=== PATIENT | male | born 1985 | race Caucasian/White ===

== ENCOUNTER 2019-01-21 16:10 | Emergency (ER) | payer MEDICAID ==
--- NOTE | 2019-01-21 16:21 | EDPHY ---
General Time Seen by Provider: 01/21/19 16:21 Narrative: CLINICAL IMPRESSION: Bilateral pedal skin breakdown, right foot cellulitis ASSESSMENT/PLAN: Patient is a 33-year-old male who presents for for a med clear complaining of bilateral foot pain. Patient is afebrile and not toxic appearing, no acute distress. Physical exam reveals wet feet with multiple blisters and areas of desquamation, mild right foot cellulitis. There was no evidence of systemic infection, gangrene, abscess, necrotizing skin infection or deep space infection. Patient was evaluated by General surgery Dr. Thomas, recommended nystatin powder and oral antibiotic for conservative therapy. I discussed the importance of keeping his feet dry, he was provided several bottles of nystatin power as he is going to residential. He was provided a prescription for Keflex and given his 1st dose in the emergency department. Dr. Thomas would like to see him in 1 week for follow-up, return precautions discussed. Patient is up-to- date on his tetanus status. DIFFERENTIAL DX: Differential diagnosis including but not limited to and in no particular order gangrene, cellulitis, abscess, necrotizing skin infection ED COURSE: 1631: Findings concerning for early gangrene. Case discussed with Dr. Thomas with General surgery, he will evaluate this patient in the emergency department. 1645: Dr. Thomas evaluated this patient, no concern for gangrene. Recommended nystatin antifungal and Keflex for conservative therapy. Will follow up in 1 week. 1713: Case discussed with Dr. Roberson, no findings to suggest osteomyelitis. No gas present. CHIEF COMPLAINT: Bilateral feet pain, skin loss and blisters HPI: Patient is a 33-year-old male who is homeless, no significant medical problems who presents to the emergency department with bilateral feet pain, skin breakdown and blisters. Patient reports 6 days ago he got his feet wet, he has been trying to keep his feet dry however has been unsuccessful. Patient reports since that time he has started to develop blisters on multiple toes, skin breakdown between his toes, skin breakdown on the soles of his feet as well as significant pain. He denies any numbness or tingling of his extremities. He has not tried anything for pain. Patient denies any fevers, chills or change in appetite. No history of issues with his feet in the past. He is up-to-date on his tetanus status. Patient currently under arrest for a reported felony, here for med clearance. PMH: Denies Family History: Not contributory Social History: Currently homeless REVIEW OF SYSTEMS: All other systems negative Constitutional: No fever, no chills, appetite change. Eyes: No discharge, vision change ENT: No sore throat, congestion, ear pain. Cardiovascular: No chest pain, no palpitations. Respiratory: No cough, no shortness of breath. Gastrointestinal: No abdominal pain, no vomiting, diarrhea. Genitourinary: No hematuria, dysuria, flank pain. Musculoskeletal: Bilateral foot pain. No back pain, joint swelling, joint pain , myalgias. Skin: Bilateral skin breakdown on his feet, blisters. Neurological: No headache, dizziness, weakness. PHYSICAL EXAM: General Appearance: Unkempt and disheveled. Not toxic-appearing. HENT: Normocephalic, atraumatic. Bilateral external ears are normal. Nares are clear, mucosa is pink. Oropharynx is clear, uvula is midline. There is no tonsillar enlargement or exudate. Eyes: PERRLA, EOMI. Conjunctiva pink, no pallor or injection. Neck: Supple, nontender, no lymphadenopathy, no midline pain, FROM, no meningismus. Respiratory: There are no retractions, lungs are clear to auscultation. Cardiac: Regular rate and rhythm, no murmurs or gallops. Gastrointestinal: Abdomen is soft, nontender, bowel sounds normal, no masses/ hernia, no rigidity, guarding or focal peritoneal findings. Neurological: Alert and oriented x 3, CN 2-12 grossly intact, normal sensation and strength Skin: Warm. Musculoskeletal: Bilateral feet are malodorous, there is desquamation bilaterally inter digitally. There are blisters noted on the right foot digits 1, 2 and 4. There are blisters noted on the left foot on toes 1, 2 and 3. There is desquamation bilateral forefoot, more so on the right foot with surrounding erythema. Ankles are nontender with full range of motion. 2+ dorsalis pedis and posterior tibialis. Bilateral calves are nontender. Lower extremities are otherwise unremarkable. Psychiatric: Mood and affect are normal, there is no agitation. MEDICAL DECISION MAKING: Patient was seen independently. Secondary supervising physician at time of evaluation was Dr. Farrell, he did not evaluate this patient. Diagnosis: Bilateral pedal skin breakdown and cellulitis. Summary: See Assessment and Plan for summary of ED visit Clinical lab tests: ordered / reviewed. Independent visualization of images, tracing, or specimens: Yes / No. Decision to obtain medical records or history from someone other than the patient: No Review / Summarize previous medical records: Yes Discussed patient with another provider: Yes, Dr. Farrell and Dr. Thomas Patient Progress: Stable, discharge to residential. - Objective Vital Signs: Initial Vital Signs Temperature (C) 36.9 C 01/21/19 16:10 Heart Rate 94 01/21/19 16:10 Respiratory Rate 16 01/21/19 16:10 Blood Pressure 151/105 H 01/21/19 16:10 O2 Sat (%) 95 01/21/19 16:10 O2 Delivery Mode Room Air Allergies/Adverse Reactions: No Known Allergies Allergy (Unverified 01/21/19 16:24) Home Medications: Medication Instructions Recorded Cephalexin [Keflex (*)] 500 mg PO Q6H #28 cap 01/21/19 Medications Given: Nystatin (Mycostatin Powder) 1 sanjay TP TID THIAGO Stop: 02/20/19 21:59 Last Admin: 01/21/19 17:02 Dose: 1 sanjay Discontinued Medications Cephalexin HCl (Keflex) 500 mg PO EDNOW ONE PRN Reason: Protocol Stop: 01/21/19 16:39 Last Admin: 01/21/19 17:02 Dose: 500 mg Departure - Departure Disposition: Law Enforcement/Court/Prison Clinical Impression: Skin breakdown Condition: Good Instructions: Additional Information Additional Instructions: Patient is medically clear for residential. DISCHARGE INSTRUCTIONS FROM YOUR PROVIDER Thank you for visiting our emergency department today. It is imperative that you keep your feet dry. Please apply the nystatin powder three times per day feet. Continue the oral antibiotic as prescribed 4 times per day. Follow-up with General surgery in 7 days. For pain control: You may take Tylenol, I recommend 500-1000 mg every 6-8 hours as needed. Take with food and a full glass of water. Stop taking if this is upsetting you stomach. Do not exceed 4000 mg in a 24 hr period. You may also take ibuprofen, recommend 400 mg every 6 hr. Take with food and a full glass of water. Stop taking if this upsets your stomach. Do not exceed 2400 mg in a 24 hr period. Return to the emergency department for fever, significantly increased pain, swelling, bleeding, redness, signs of infection or for any other concerning symptom. People present with illnesses and injuries in different ways, and it is always possible that we have missed something. Again, thank you for choosing our emergency department. We hope that you feel better. Referrals: [facility],. [Clinic] - As per Instructions Edmar Thomas MD [Medical Doctor] - As per Instructions (Please follow-up in 1 week, call to schedule an appointment.) Prescriptions: Cephalexin [Keflex (*)] 500 mg PO Q6H #28 cap
[2019-01-21] MEDS ORDERED: CEPHALEXIN 500 MG CAP PO ONE (16:38)
[2019-01-21 17:22] VITALS: BP 145/89
[2019-01-21] MEDS ORDERED: NYSTATIN POWDER 15 GM BTL TP SCH (22:00)
== END 2019-01-21 17:25 ==
DX: L03.115 Cellulitis of right lower limb (principal); Z59.0 Homelessness

== ENCOUNTER 2019-01-22 08:57 | Observation (INO) | payer MEDICAID, OTHER ==
--- NOTE | 2019-01-22 09:05 | EDPHY ---
H & P Time Seen by Provider: 01/22/19 09:05 HPI/ROS: CHIEF COMPLAINT: Concerns about excited delirium HISTORY OF PRESENT ILLNESS: 33-year-old male in the emergency department via ambulance accompanied by police from correction. Per EMS and police the patient awoke this morning highly agitated, started screaming, reported that he was visualizing somebody killing his , started banging his head against the wall. Concerns by correction staff over excited delirium. Paramedics were able to verbally calm the patient without pharmacologic intervention. He remains calm en route to the hospital. Of note, the patient was seen emergency department yesterday for medical screening prior to incarceration, complaint of bilateral foot pain was noted to have desquamation digitally was evaluated by surgery on-call who recommended antifungal powder an oral antibiotic for cellulitis coverage. REVIEW OF SYSTEMS: 10 systems reviewed and negative with the exception of the elements mentioned in the history of present illness PAST MEDICAL & SURGICAL HISTORY: No pertinent medical or surgical history SOCIAL HISTORY: Positive for methamphetamine abuse PHYSICAL EXAM (Prior to examination, patient consented to physical exam, hands were washed and my usual and customary physical exam procedures followed) 1) GENERAL: Well-developed, well-nourished, alert and oriented. Appears to be in no acute distress. He is calm, polite, answers my questions appropriately. 2) HEAD: Normocephalic, atraumatic, no abrasion 3) HEENT: Pupils equal, round, reactive to light bilaterally. Sclera anicteric. Nasopharynx, oropharynx, clear, no lesions. MoistDry mucous membranes. Ears bilaterally with normal tympanic membranes. 4) NECK: Full range of motion, no meningeal signs. 5) LUNGS: Clear auscultation bilaterally, no wheezes, no rhonchi, no retractions. 6) HEART: Regular rate and rhythm, no murmur, no heave, no gallop. 7) ABDOMEN: No guarding, no rebound, no focal tenderness, negative McBurney's, negative Melton's, negative Rovsing's, negative peritoneal sign, 8) MUSCULOSKELETAL: Bilateral feet are examined. There is mild desquamation of the interdigital region with blisters noted, no evidence of gangrene or trench foot. No lymphangitic streaking. No erythema. No crepitus. Soft compartments throughout. 9) BACK: No CVA tenderness, no midline vertebral tenderness, no fluctuance, no step-off, no obvious trauma, no visual or palpable abnormality. 10) SKIN: No rash, no petechiae. 11) Psychiatric: Patient is oriented X 3, there is no agitation. DIFFERENTIAL DIAGNOSIS: In no particular order including but not limited to rhabdomyolysis, excited delirium, acute methamphetamine abuse - Medical/Surgical History Hx Asthma: No Hx Chronic Respiratory Disease: No Hx Diabetes: No Hx Cardiac Disease: No Hx Renal Disease: No Hx Cirrhosis: No Hx Alcoholism: No Hx HIV/AIDS: No Hx Splenectomy or Spleen Trauma: No Other PMH: seasonal allergies, homeless, ex-iv drug. user - Social History Smoking Status: Never smoked Constitutional: Initial Vital Signs Temperature (C) 36.8 C 01/22/19 09:07 Heart Rate 88 01/22/19 09:07 Respiratory Rate 16 01/22/19 09:07 Blood Pressure 124/92 H 01/22/19 09:07 O2 Sat (%) 94 01/22/19 09:07 O2 Delivery Mode Room Air Allergies/Adverse Reactions: No Known Allergies Allergy (Verified 01/22/19 12:44) Home Medications: Medication Instructions Recorded Cephalexin [Keflex (*)] 500 mg PO Q6H #28 cap 01/21/19 Medical Decision Making ED Course/Re-evaluation: 9:44 a.m.: Patient is calm cooperative. At this time his CK is pending however his BUN creatinine ratio is elevated at 35. He is receiving IV hydration. 9:57 a.m.: Patient's CK returned at this time, elevated at 2828 consistent with rhabdomyolysis. He is receiving IV hydration and will continue to be monitored in the ER, will recheck his CK. Care of patient under supervision of secondary supervising physician Dr Ferraro with whom I discussed case. 12:06 p.m.: Patient's CK remains elevated although is trending downward. Of concern in this patient is his current living situation in correction with limited medical resources and limited ability for observation. Have therefore recommended admission for continued hydration and observation. Consulted with hospitalist, admit to Dr. Bam Varma for continued hydration observation. - Data Points Laboratory Results: Laboratory Results 01/22/19 09:05 01/22/19 11:00 01/22/19 01/22/19 01/22/19 11:00 09:50 09:05 WBC RBC Hgb Hct MCV MCH MCHC RDW Plt Count MPV Neut % (Auto) Lymph % (Auto) Rogers % (Auto) Eos % (Auto) Baso % (Auto) Nucleat RBC Rel Count Absolute Neuts (auto) Absolute Lymphs (auto) Absolute Monos (auto) Absolute Eos (auto) Absolute Basos (auto) Absolute Nucleated RBC Immature Gran % Immature Gran # RBC/WBC/PLT Morphology Platelet Estimate Sodium 138 mEq/L mEq/L 139 mEq/L mEq/L (135-145) (135-145) Potassium 3.9 mEq/L mEq/L 3.7 mEq/L mEq/L (3.5-5.2) (3.5-5.2) Chloride 105 mEq/L mEq/L 100 mEq/L mEq/L (97-110) (97-110) Carbon Dioxide 23 mEq/l mEq/l 22 mEq/l mEq/l (22-31) (22-31) Anion Gap 10 mEq/L mEq/L 17 mEq/L H mEq/L (6-14) (6-14) BUN 43 mg/dL H mg/dL 46 mg/dL H mg/dL (7-23) (7-23) Creatinine 1.1 mg/dL mg/dL 1.3 mg/dL mg/dL (0.7-1.3) (0.7-1.3) Estimated GFR > 60 > 60 Glucose 112 mg/dL H mg/dL 125 mg/dL H mg/dL (70-100) (70-100) Calcium 7.9 mg/dL L mg/dL 9.4 mg/dL mg/dL (8.5-10.4) (8.5-10.4) Creatine Kinase 2619 IU/L H IU/L 2828 IU/L H IU/L (0-224) (0-224) CK-MB (CK-2) Fraction 13.80 ng/mL H ng/mL 17.30 ng/mL H ng/mL (0.00-4.55) (0.00-4.55) CK-MB (CK-2) % 0.5 % % 0.6 % % (0.0-4.0) (0.0-4.0) Creatine Kinase Interp NEGATIVE NEGATIVE (NEGATIVE) (NEGATIVE) Urine Color GERBER Urine Appearance HAZY Urine pH 5.0 (5.0-7.5) Ur Specific [place] 1.034 H (1.002-1.030) Urine Protein 2+ H (NEGATIVE) Urine Ketones TRACE H (NEGATIVE) Urine Blood 1+ H (NEGATIVE) Urine Nitrate NEGATIVE (NEGATIVE) Urine Bilirubin NEGATIVE (NEGATIVE) Urine Urobilinogen 2.0 EU H EU (0.2-1.0) Ur Leukocyte Esterase NEGATIVE (NEGATIVE) Urine RBC 1-3 /hpf /hpf (0-3) Urine WBC 1-3 /hpf /hpf (0-3) Ur Epithelial Cells NONE SEEN /lpf /lpf (NONE-1+) Urine Bacteria TRACE /hpf H /hpf (NONE SEEN) Hyaline Casts 5-15 /lpf /lpf (0-1) Urine Mucus 4+ /lpf H /lpf (NONE-1+) Urine Sperm PRESENT /hpf /hpf (NONE SEEN) Urine Glucose NEGATIVE (NEGATIVE) Urine Opiates Screen NEGATIVE (NEGATIVE) Urine Barbiturates NEGATIVE (NEGATIVE) Ur Phencyclidine Scrn NEGATIVE (NEGATIVE) Ur Amphetamine Screen NON-NEGATIVE H (NEGATIVE) U Benzodiazepines Scrn NEGATIVE (NEGATIVE) Urine Cocaine Screen NEGATIVE (NEGATIVE) U Marijuana (THC) Screen NEGATIVE (NEGATIVE) Ethyl Alcohol < 10 mg/dL mg/dL (0-10) 01/22/19 09:05 WBC 12.80 10^3/uL H 10^3/uL (3.80-9.50) RBC 5.04 10^6/uL 10^6/uL (4.40-6.38) Hgb 15.6 g/dL g/dL (13.7-17.5) Hct 43.1 % % (40.0-51.0) MCV 85.5 fL fL (81.5-99.8) MCH 31.0 pg pg (27.9-34.1) MCHC 36.2 g/dL g/dL (32.4-36.7) RDW 12.2 % % (11.5-15.2) Plt Count 223 10^3/uL 10^3/uL (150-400) MPV 10.9 fL fL (8.7-11.7) Neut % (Auto) 79.9 % H % (39.3-74.2) Lymph % (Auto) 10.6 % L % (15.0-45.0) Rogers % (Auto) 7.5 % % (4.5-13.0) Eos % (Auto) 1.6 % % (0.6-7.6) Baso % (Auto) 0.2 % L % (0.3-1.7) Nucleat RBC Rel Count 0.0 % % (0.0-0.2) Absolute Neuts (auto) 10.23 10^3/uL H 10^3/uL (1.70-6.50) Absolute Lymphs (auto) 1.36 10^3/uL 10^3/uL (1.00-3.00) Absolute Monos (auto) 0.96 10^3/uL H 10^3/uL (0.30-0.80) Absolute Eos (auto) 0.20 10^3/uL 10^3/uL (0.03-0.40) Absolute Basos (auto) 0.03 10^3/uL 10^3/uL (0.02-0.10) Absolute Nucleated RBC 0.00 10^3/uL 10^3/uL (0-0.01) Immature Gran % 0.2 % % (0.0-1.1) Immature Gran # 0.03 10^3/uL 10^3/uL (0.00-0.10) RBC/WBC/PLT Morphology TNP Platelet Estimate TNP Sodium Potassium Chloride Carbon Dioxide Anion Gap BUN Creatinine Estimated GFR Glucose Calcium Creatine Kinase CK-MB (CK-2) Fraction CK-MB (CK-2) % Creatine Kinase Interp Urine Color Urine Appearance Urine pH Ur Specific [place] Urine Protein Urine Ketones Urine Blood Urine Nitrate Urine Bilirubin Urine Urobilinogen Ur Leukocyte Esterase Urine RBC Urine WBC Ur Epithelial Cells Urine Bacteria Hyaline Casts Urine Mucus Urine Sperm Urine Glucose Urine Opiates Screen Urine Barbiturates Ur Phencyclidine Scrn Ur Amphetamine Screen U Benzodiazepines Scrn Urine Cocaine Screen U Marijuana (THC) Screen Ethyl Alcohol Medications Given: Acetaminophen (Tylenol) 650 mg PO Q4HRS PRN PRN Reason: Pain, Mild/Fever, Can Take PO Stop: 07/21/19 12:55 Last Admin: 01/22/19 14:32 Dose: 650 mg Cephalexin HCl (Keflex) 500 mg PO Q6H THIAGO PRN Reason: Protocol Stop: 02/21/19 12:59 Last Admin: 01/22/19 14:22 Dose: 500 mg Enoxaparin Sodium (Lovenox) 40 mg SC DAILY THIAGO Stop: 07/21/19 13:44 Last Admin: 01/22/19 14:28 Dose: 40 mg Sodium Chloride (Ns) 1,000 mls @ 100 mls/hr IV CONT THIAGO Stop: 01/23/19 22:59 Last Admin: 01/22/19 14:22 Dose: 1,000 mls Discontinued Medications Sodium Chloride (Ns) 1,000 mls @ 0 mls/hr IV ONCE ONE PRN Reason: Wide Open Stop: 01/22/19 09:44 Last Admin: 01/22/19 09:48 Dose: 1,000 mls Sodium Chloride (Ns) 1,000 mls @ 0 mls/hr IV ONCE ONE PRN Reason: Wide Open Stop: 01/22/19 09:45 Last Admin: 01/22/19 09:48 Dose: 1,000 mls Sodium Chloride (Ns) 1,000 mls @ 0 mls/hr IV ONCE ONE PRN Reason: Wide Open Stop: 01/22/19 12:08 Last Admin: 01/22/19 12:15 Dose: 1,000 mls Departure - Departure Disposition: [facility] Inpatient Acute Clinical Impression: Methamphetamine abuse Rhabdomyolysis Qualifiers: Rhabdomyolysis type: non-traumatic Qualified Code(s): M62.82 - Rhabdomyolysis Condition: Fair
[2019-01-22 09:20] LABS: PLATELET COUNT 223 10^3/uL (150-400)
[2019-01-22] MEDS ORDERED: NS 1,000 ML IV ONE ×3 (09:43→12:07)
[2019-01-22 09:45] LABS: CREATINE KINASE 2828 IU/L (0-224)
[2019-01-22 11:41] LABS: CREATINE KINASE 2619 IU/L (0-224)
[2019-01-22] MEDS ORDERED: ONDANSETRON 4 MG/2 ML VIAL IVP PRN (12:56)
[2019-01-22] MEDS ORDERED: ONDANSETRON DISINTEGRATING 4 MG TAB PO PRN (12:56)
--- NOTE | 2019-01-22 13:16 | PDGENHP ---
History and Physical - Chief Complaint Rhabdomyolysis - History of Present Illness 33 y/o homeless male presenting from nursing home via EMS w/rhabdomyolysis. Per EMS, police, and ED PA Jemima Ibarra, the pt woke up this morning agitated and screaming saying someone was killing his outside his window. He started to bang his head against the wall. Longterm staff became concerned w/his acute delirium. His CK has treaded downward since being in the ED and receiving 3L NS IVF however still remains elevated at 2619. D/t concerns of his current living situation in nursing home w/limited medical resources and limited ability for observation, he will be admitted for treatment and monitoring. Of note, the pt presented to the ED yesterday for medical clearance before going to nursing home. His only complaint was bilateral foot pain which was noted to have desquamation digitally and large blister -- reportedly, both his feet have been wet for the last 6-7 days and he attempted to keep them dry unsuccessfully. evaluated his feet and noted no evidence of gangrene or trench feet. No crepitus. He was placed on Nystatin powder and Keflex and told to f/u w/Dr. Thomas in one week. Mr. Bauman denies MENDEZ, vision changes, CP, palpitations, SOB. Endorses mild nausea and continued bilateral foot pain. I evaluated the pt in his room w/public relations officer at bedside. History Information - Allergies/Home Medication List Allergies/Adverse Reactions: No Known Allergies Allergy (Verified 01/22/19 12:44) I have personally reviewed and updated: family history, medical history, social history, surgical history - Past Medical History no pertinent PMH - Surgical History Reports: no pertinent surgical hx - Family History Positive for: non-pertinent - Social History Smoking Status: Never smoked Alcohol Use: None Drug Use: None (He denies drug use however w/tox screen, + for meth) Review of Systems Review of Systems: ROS: 10pt was reviewed & negative except for what was stated in HPI & below Physical Exam Physical Exam: Lab data were reviewed. Case discussed w/admitting physician, Dr. Mahendra Varma. WBC: 12.80 H/H: 15.6/43.1 Plt count: 223 Na: 138 K: 3.9 Cl: 105 Co2: 23 BUN/Cr: 43/1.1 CK: 2619 UA: Specific gravity 1.034, Protein 2+, 1+ Blood, trace ketones, 2.0 urobilinogen, trace bacteria, 4+ mucus Temp Pulse Resp BP Pulse Ox 36.6 C 61 18 119/79 98 01/22/19 12:56 01/22/19 12:56 01/22/19 12:56 01/22/19 12:56 01/22/19 12:56 Constitutional: no apparent distress, appears nourished, unkempt Eyes: PERRL, anicteric sclera, EOMI Ears, Nose, Mouth, Throat: moist mucous membranes, hearing normal, ears appear normal, no oral mucosal ulcers, poor dentition Cardiovascular: regular rate and rhythym, no murmur, rub, or gallop, No edema Peripheral Pulses: 2+: dorsalis-pedis (R), dorsalis-pedis (L) Respiratory: no respiratory distress, no rales or rhonchi, clear to auscultation Gastrointestinal: normoactive bowel sounds, soft, non-tender abdomen, no palpable masses Genitourinary: no bladder fullness, no bladder tenderness Skin: other (Examined bilateral feet. Desquamation noted interdigitally. Large blister on right great hallux.) Musculoskeletal: full muscle strength, no muscle tenderness, normal joint ROM, no joint effusions Neurologic: AAOx3, sensation intact bilaterally, CN II-XII Intact Psychiatric: interacting appropriately, not anxious, not encephalopathic, thought process linear Lymph, Heme, Immunologic: no cervical LAD, no supraclavicular LAD Lab Data & Imaging Review 01/22/19 09:05 01/22/19 11:00 WBC 12.80 10^3/uL (3.80-9.50) H 01/22/19 09:05 RBC 5.04 10^6/uL (4.40-6.38) 01/22/19 09:05 Hgb 15.6 g/dL (13.7-17.5) 01/22/19 09:05 Hct 43.1 % (40.0-51.0) 01/22/19 09:05 MCV 85.5 fL (81.5-99.8) 01/22/19 09:05 MCH 31.0 pg (27.9-34.1) 01/22/19 09:05 MCHC 36.2 g/dL (32.4-36.7) 01/22/19 09:05 RDW 12.2 % (11.5-15.2) 01/22/19 09:05 Plt Count 223 10^3/uL (150-400) 01/22/19 09:05 MPV 10.9 fL (8.7-11.7) 01/22/19 09:05 Neut % (Auto) 79.9 % (39.3-74.2) H 01/22/19 09:05 Lymph % (Auto) 10.6 % (15.0-45.0) L 01/22/19 09:05 Bates % (Auto) 7.5 % (4.5-13.0) 01/22/19 09:05 Eos % (Auto) 1.6 % (0.6-7.6) 01/22/19 09:05 Baso % (Auto) 0.2 % (0.3-1.7) L 01/22/19 09:05 Nucleat RBC Rel Count 0.0 % (0.0-0.2) 01/22/19 09:05 Absolute Neuts (auto) 10.23 10^3/uL (1.70-6.50) H 01/22/19 09:05 Absolute Lymphs (auto) 1.36 10^3/uL (1.00-3.00) 01/22/19 09:05 Absolute Monos (auto) 0.96 10^3/uL (0.30-0.80) H 01/22/19 09:05 Absolute Eos (auto) 0.20 10^3/uL (0.03-0.40) 01/22/19 09:05 Absolute Basos (auto) 0.03 10^3/uL (0.02-0.10) 01/22/19 09:05 Absolute Nucleated RBC 0.00 10^3/uL (0-0.01) 01/22/19 09:05 Immature Gran % 0.2 % (0.0-1.1) 01/22/19 09:05 Immature Gran # 0.03 10^3/uL (0.00-0.10) 01/22/19 09:05 RBC/WBC/PLT Morphology TNP 01/22/19 09:05 Platelet Estimate TNP 01/22/19 09:05 Sodium 138 mEq/L (135-145) 01/22/19 11:00 Potassium 3.9 mEq/L (3.5-5.2) 01/22/19 11:00 Chloride 105 mEq/L (97-110) 01/22/19 11:00 Carbon Dioxide 23 mEq/l (22-31) 01/22/19 11:00 Anion Gap 10 mEq/L (6-14) 01/22/19 11:00 BUN 43 mg/dL (7-23) H 01/22/19 11:00 Creatinine 1.1 mg/dL (0.7-1.3) 01/22/19 11:00 Estimated GFR > 60 01/22/19 11:00 Glucose 112 mg/dL (70-100) H 01/22/19 11:00 Calcium 7.9 mg/dL (8.5-10.4) L 01/22/19 11:00 Creatine Kinase 2619 IU/L (0-224) H 01/22/19 11:00 CK-MB (CK-2) Fraction 13.80 ng/mL (0.00-4.55) H 01/22/19 11:00 CK-MB (CK-2) % 0.5 % (0.0-4.0) 01/22/19 11:00 Creatine Kinase Interp NEGATIVE (NEGATIVE) 01/22/19 11:00 Urine Color GERBER 01/22/19 09:50 Urine Appearance HAZY 01/22/19 09:50 Urine pH 5.0 (5.0-7.5) 01/22/19 09:50 Ur Specific [place] 1.034 (1.002-1.030) H 01/22/19 09:50 Urine Protein 2+ (NEGATIVE) H 01/22/19 09:50 Urine Ketones TRACE (NEGATIVE) H 01/22/19 09:50 Urine Blood 1+ (NEGATIVE) H 01/22/19 09:50 Urine Nitrate NEGATIVE (NEGATIVE) 01/22/19 09:50 Urine Bilirubin NEGATIVE (NEGATIVE) 01/22/19 09:50 Urine Urobilinogen 2.0 EU (0.2-1.0) H 01/22/19 09:50 Ur Leukocyte Esterase NEGATIVE (NEGATIVE) 01/22/19 09:50 Urine RBC 1-3 /hpf (0-3) 01/22/19 09:50 Urine WBC 1-3 /hpf (0-3) 01/22/19 09:50 Ur Epithelial Cells NONE SEEN /lpf (NONE-1+) 01/22/19 09:50 Urine Bacteria TRACE /hpf (NONE SEEN) H 01/22/19 09:50 Hyaline Casts 5-15 /lpf (0-1) 01/22/19 09:50 Urine Mucus 4+ /lpf (NONE-1+) H 01/22/19 09:50 Urine Sperm PRESENT /hpf (NONE SEEN) 01/22/19 09:50 Urine Glucose NEGATIVE (NEGATIVE) 01/22/19 09:50 Urine Opiates Screen NEGATIVE (NEGATIVE) 01/22/19 09:50 Urine Barbiturates NEGATIVE (NEGATIVE) 01/22/19 09:50 Ur Phencyclidine Scrn NEGATIVE (NEGATIVE) 01/22/19 09:50 Ur Amphetamine Screen NON-NEGATIVE (NEGATIVE) H 01/22/19 09:50 U Benzodiazepines Scrn NEGATIVE (NEGATIVE) 01/22/19 09:50 Urine Cocaine Screen NEGATIVE (NEGATIVE) 01/22/19 09:50 U Marijuana (THC) Screen NEGATIVE (NEGATIVE) 01/22/19 09:50 Ethyl Alcohol < 10 mg/dL (0-10) 01/22/19 09:05 Assessment & Plan Assessment: 33 y/o homeless male w/no PMH from nursing home presenting w/rhabdomyolysis. His vital signs are the following: BP 145/66, pulse 75, resp 16, temp 36.6c, 97% RA. #Rhabdomyolysis: CK trending downward, will recheck in AM. Will check creatinine in AM. Received 3L NS IVF in ED, cont IVF throughout the night. #Bilateral feet w/cellulitis: Cont Nystatin powder TID to feet and cont Keflex. Will need to f/u w/Dr. Thomas outpatient in one week. #Leukocytosis: Afebrile, not tachy, normal BP. I suspect this is reactive and not infectious. Will check WBC in AM. Cont to monitor. #Incarceration: Went to nursing home yesterday after coming to ED for medical clearance. consumer safety officer at bedside. Diet: Regular Code: Full VTE ppx: Lovenox subq Dispo: Admit to obs
[2019-01-22] MEDS ORDERED: HEPARIN 5,000 UNIT/0.5 ML INJ SC SCH (14:00)
--- NOTE | 2019-01-22 14:03 | HOSPPROG ---
Hospitalist Progress Note Assessment/Plan: Patient seen/examined/discussed w MONICA Paulson. Events noted, labs reviewed. Agree w plan as outlined 1. mild rhabdomyolysis in setting of agitation and meth use labs c/w hypovolemia IVF and repeat labs in AM 2. RLE cellulitis: minimal, but abx started yesterday probably from poorly fitting shoes reasonable to continue keflex Objective: Vital Signs Temp Pulse Resp BP Pulse Ox 36.6 C 61 18 119/79 98 01/22/19 12:56 01/22/19 12:56 01/22/19 12:56 01/22/19 12:56 01/22/19 12:56 ICD10 Worksheet Patient Problems: Problems Problem Status Onset Methamphetamine abuse Acute Rhabdomyolysis Acute
[2019-01-22] MEDS: NS 1,000 ML IV SCH (14:22)
[2019-01-22] MEDS: CEPHALEXIN 500 MG CAP PO SCH ×2 (14:22→18:18)
[2019-01-22] MEDS: ENOXAPARIN 40 MG/0.4 ML SYR SC SCH (14:28)
[2019-01-22] MEDS: ACETAMINOPHEN 325 MG TAB PO PRN (14:32)
--- NOTE | 2019-01-22 15:50 | WOCRNPDOC ---
WOCRN Advanced Assessment Note - Skin Integrity Problem, Advanced Assess Bilateral Volar/Ventral Foot Dressing Type: Open to Air [place] Wound Tissue: Erythema Wound Bed Color: [place] Wound Edges: Epithelizing, Attached, Irregular Site Measurement - Head-to-Toe Length X Width X Depth (cm): 5x5x0.1 Right; 2x2x0.1 left Pressure Injury Present on Admit: Yes Skin Integrity Problem Comment: Patient presents with irregular, dry, rashy type open areas on tops of right toes and also to bottom of bilateral feet, right larger in total size than left. On the bottom of the feet beyond the open areas there is erythema in a thao, irregular pattern that extends towards the lateral edge of the foot and up towards the toes. No swelling or heat noted to foot. Tender to touch per patient reaction. Will paint with betadine and wrap. Wound care will follow. Bilateral Toe Blister Dressing Type: Open to Air Site Measurement - Head-to-Toe Length X Width X Depth (cm): x3 blisters; largest being 2x2 on R 1st toe, smallest 0.5x1.5 on R 2nd toe. L 3rd toe across tip of toe 0.5x2 Pressure Injury Present on Admit: Yes Skin Integrity Problem Comment: Unknown etiology, possibly pressure injury DTI related to tight shoes vs mild frostbite from being in wet shoes for days and homeless. Largest of the blisters is on the medial side of R first toe. Thick roofed blister with some bruising or blood at base of bubble. R 2nd toe has a serous filled blisteralong the medial aspect of the toe. Looks like it could be from this toe rubbing against the great toe. Last blister os on the Left 3rd toe , runs across the tip/distal end of the toe. This one also has a blood, possibly DTI look to it. Painted with betadine, covered with Mepilex transfer to protect and wrapped with Sarika. Wound care will follow.
[2019-01-22] MEDS: NYSTATIN POWDER 15 GM BTL TP SCH ×2 (18:21→23:01)
[2019-01-23] MEDS: NS 1,000 ML IV SCH (00:53)
[2019-01-23] MEDS: CEPHALEXIN 500 MG CAP PO SCH ×2 (00:54→06:06)
[2019-01-23 04:43] LABS: CREATINE KINASE 1394 IU/L (0-224)
[2019-01-23] MEDS: ACETAMINOPHEN 325 MG TAB PO PRN (08:16)
[2019-01-23] MEDS: ENOXAPARIN 40 MG/0.4 ML SYR SC SCH (08:16)
[2019-01-23] MEDS: NYSTATIN POWDER 15 GM BTL TP SCH (08:17)
--- NOTE | 2019-01-23 09:05 | HOSPPROG ---
Hospitalist Progress Note Assessment/Plan: 33 yo M w rabdo, LE wounds rhabdo: mild ck trending down stop ivf cause is thrashing about while incarcerated, on meth LE wounds: complete course of kelfex w local wound care dispo: back to residential Subjective: CK trending down. \seen by wound care Objective: Vital Signs Temp Pulse Resp BP Pulse Ox 36.6 C 54 L 16 105/59 L 94 01/23/19 05:03 01/23/19 05:03 01/23/19 05:03 01/23/19 05:03 01/23/19 05:03 Laboratory Results 01/23/19 04:10 01/23/19 04:10 01/22/19 01/23/19 01/24/19 05:59 05:59 05:59 Intake Total 500 Output Total 600 Balance 500 -600 - Physical Exam Constitutional: no apparent distress, appears nourished Eyes: PERRL, anicteric sclera Ears, Nose, Mouth, Throat: moist mucous membranes, hearing normal Cardiovascular: regular rate and rhythym, no murmur, rub, or gallop Respiratory: no respiratory distress, no rales or rhonchi Gastrointestinal: normoactive bowel sounds, soft, non-tender abdomen Genitourinary: no bladder fullness, No holt in urethra Skin: warm, normal color Musculoskeletal: full muscle strength Neurologic: AAOx3 ICD10 Worksheet Patient Problems: Problems Problem Status Onset Methamphetamine abuse Acute Rhabdomyolysis Acute
[2019-01-23 09:06] VITALS: BP 116/68
--- NOTE | 2019-01-23 09:06 | PDIAF ---
- Diagnosis Diagnosis: rhabdomyolysis, LE wounds Code Status: Full Code - Medication Management Discharge Medications: electronically signed and located in the Home Medication List. - Orders Services needed: Registered Nurse Wound Care Instructions: please eval LE wounds daily. maintain bandages and cleanliness. complete course of abx - Follow Up Care Current Providers and Referrals: NONE *PRIMARY CARE P,. [Primary Care Provider] - As per Instructions
--- NOTE | 2019-01-23 09:23 | GDS ---
[f rep st] DISCHARGE SUMMARY DISCHARGE DIAGNOSES: 1. Mild rhabdomyolysis secondary to thrashing about while incarcerated and intoxicated on methamphet amine. 2. Lower extremity wounds. 3. Encephalopathy, toxic. HOSPITAL COURSE: Please see admission history and physical by Dr. Susan Paulson. The patient presented with encephalopathy. He had been arrested. He had recently been seen as a screening exam prior, and he had some lower extremity wounds secondary to having his feet wet for a number of days in a row. He was seen by Surgery who felt this was not trench foot, started on Keflex. He had a CK elevated in the high 2000s range. He received IV fluids. It trended down. His renal function was intact. He was seen by Wound Care and provided local dressing. He is discharged to nursing home with instructions to co mplete a course of antibiotics and for wound care instructions. /[id number]/MODL
== END 2019-01-23 10:13 ==
LOC: EDUNIT# → F1N 12:46
PROVIDERS: ADMIT Internal Medicine; ATTEND Internal Medicine
DX: T79.6XXA Traumatic ischemia of muscle, initial encounter (principal); T43.625A Adverse effect of amphetamines, initial encounter; G92 Toxic encephalopathy; R23.4 Changes in skin texture; S90.421A Blister (nonthermal), right great toe, initial encounter; X58.XXXA Exposure to other specified factors, initial encounter; Z59.0 Homelessness
CPT/HCPCS: 96360; 96361; 96372; 99285; G0378; 80305; G0480; J1650